=== PATIENT | female | born 1945 | race Caucasian/White ===

== ENCOUNTER 2016-08-20 07:08 | Inpatient (IN) | payer MEDICARE, OTHER ==
[~2016-08-20] VITALS: Ht 154.9 cm; Wt 58.0 kg
[2016-08-20] VITALS (9 sets, daily range): BP systolic 143–194; BP diastolic 73–91; PULSE 72–89; RESP 16–20; TEMP 98; O2SAT 96–99
[~2016-08-20 07:08] MED LIST: BONETAB PO; CETI1TAB21 PO; ESTR42.5V PV; MAGN250T5 PO; METR1GEL2 EX; MULT-65 PO; NEXI40CA PO; VITA100T54 PO; VITA20002 PO
[2016-08-20] MEDS ORDERED: SODIUM CHLORIDE 0.9% FLUSH 5 ML FLUSH IVF PRN ×3 (07:30→21:00)
[2016-08-20] MEDS ORDERED: ZYRTTAB2 PO (07:30)
[2016-08-20] MEDS ORDERED: Vitamin B1 PO (07:41)
[2016-08-20] MEDS ORDERED: Multivitamin PO (07:41)
[2016-08-20] MEDS ORDERED: MAGN250T5 PO (07:41)
[2016-08-20] MEDS ORDERED: OMEP20CA2 PO (07:41)
[2016-08-20] MEDS ORDERED: METR1GEL TOPICAL (07:41)
[2016-08-20] MEDS ORDERED: BONETAB PO (07:41)
[2016-08-20] MEDS ORDERED: CHOL1TAB42 PO (07:41)
[2016-08-20] MEDS ORDERED: ESTR42.5V VAGINAL (07:41)
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
--- NOTE | 2016-08-20 08:15 | RADRPT ---
EXAM DATE/TIME: 08/20/2016 07:50 [facility] COMPARISON: No previous studies available for comparison. INDICATIONS : Woke up with left arm numbness and tingling RADIATION DOSE: 39.44 CTDIvol (mGy) MEDICAL HISTORY : None SURGICAL HISTORY : None. ENCOUNTER: Initial ACUITY: 1 day PAIN SCALE: 0/10 LOCATION: cranial TECHNIQUE: Multiple contiguous axial images were obtained of the head. Using automated exposure control and adj ustment of the mA and/or kV according to patient size, radiation dose was kept as low as reasonably a chievable to obtain optimal diagnostic quality images. FINDINGS: CEREBRUM: The ventricles are normal for age. No evidence of midline shift, mass lesion, hemorrhage or acute in farction. No extra-axial fluid collections are seen. Tiny old lacunar infarcts are noted within the right basal ganglia. POSTERIOR FOSSA: The cerebellum and brainstem are intact. The 4th ventricle is midline. The cerebellopontine angle i s unremarkable. EXTRACRANIAL: The visualized portion of the orbits is intact. Mild mucosal thickening is noted involving the bilate ral ethmoid and sphenoid sinuses. SKULL: The calvaria is intact. No evidence of skull fracture. CONCLUSION: 1. No acute hemorrhage, acute infarct, mass effect or extra axial fluid collections. 2. Tiny old lacunar infarcts within the right basal ganglia. 3. Mild mucosal thickening involving the bilateral ethmoid and sphenoid sinuses. Kevin Castro MD on August 20, 2016 at 8:12 Board Certified Radiologist. This report was verified electronically.
[2016-08-20 08:56] LABS: AUTOMATED NEUTROPHIL # 4.2 TH/MM3 (1.8-7.7); BASOPHIL # 0.1 TH/MM3 (0-0.2); BASOPHIL % 1.1 % (0.0-2.0); EOSINOPHIL # 0.4 TH/MM3 (0-0.4); HEMATOCRIT 42.3 % (35.0-46.0); HEMO FLAGS DIFF FINAL; LYMPH % 27.8 % (9.0-44.0); LYMPHOCYTE # 2.1 TH/MM3 (1.0-4.8); MEAN CELL VOLUME 90.1 FL (80.0-100.0); MEAN CORPUSCULAR HEMOGLOBIN 30.4 PG (27.0-34.0); MEAN CORPUSCULAR HGB CONC 33.8 % (32.0-36.0); MONO % 8.4 % (0.0-8.0); NEUT % 56.7 % (16.0-70.0); PLATELET COUNT 246 TH/MM3 (150-450); RED CELL DISTRIBUTION WIDTH 12.3 % (11.6-17.2); WHITE BLOOD COUNT 7.4 TH/MM3 (4.0-11.0)
[2016-08-20 09:17] LABS: ANION GAP 8 MEQ/L (5-15); AST (GOT) 27 U/L (15-37); BICARBONATE 27.5 MEQ/L (21.0-32.0); BLOOD UREA NITROGEN 18 MG/DL (7-18); CHLORIDE 106 MEQ/L (98-107); GLOMERULAR FILTRATION RATE 63 ML/MIN (>89); POTASSIUM 3.8 MEQ/L (3.5-5.1); SODIUM (NA) 141 MEQ/L (136-145)
[2016-08-20 09:26] LABS: ALKALINE PHOSPHATASE 75 U/L (45-117); ALT (GPT) 36 U/L (10-53); CREATINE KINASE 766 U/L (26-192); TOTAL BILIRUBIN ADULT 0.3 MG/DL (0.2-1.0)
[2016-08-20 09:39] LABS: CKMB 15.4 NG/ML (0.5-3.6)
[2016-08-20 09:48] LABS: BACTERIA, URINE MOD /hpf; BLOOD, URINE NEG (NEG); COMMENT (UR) CULTURE INDICATED; CULTURE IF INDICATED CULTURE INDICATED; GLUCOSE,URINE NEG (NEG); KETONE, URINE NEG (NEG); NITRITE,URINE NEG (NEG); SQUAMOUS EPITHELIAL CELL URINE 4 /hpf (0-5); URINE COLOR YELLOW (YELLW/STRAW)
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
--- NOTE | 2016-08-20 13:41 | EKG ---
Date Performed: 08/20/2016 Time Performed: 08:32:56 PTAGE: 70 years EKG: Sinus rhythm NORMAL ECG NO PREVIOUS TRACING DOCTOR: Edgar Sanders Interpretating Date/Time 08/20/2016 13:39:51
[2016-08-20] MEDS ORDERED: ASPIRIN 81 MG CHEW TAB CHEW ONE ×2 (13:45→14:15)
[2016-08-20] MEDS ORDERED: ASPIRIN 81 MG CHEW TAB TUBE ONE (13:45)
[2016-08-20] MEDS ORDERED: SODIUM CHLOR 0.9% 1000 ML INJ 1,000 ML IV SCH ×3 (14:30→21:00)
[2016-08-20] MEDS ORDERED: GLUCAGON 1 MG/ML VIAL IM/SQ PRN ×2 (14:30→21:00)
[2016-08-20] MEDS ORDERED: DEXTROSE 50% IN WATER 50 ML VIAL(D50) IV PUSH PRN ×2 (14:30→21:00)
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
[2016-08-20] MEDS ORDERED: INSULIN ASPART SUPPLEMENTAL SCALE SQ SCH (16:00)
--- NOTE | 2016-08-20 17:48 | EC ---
Study Study Date:08/20/2016 STUDY CONCLUSIONS SUMMARY - Left ventricle: The cavity size was normal. Wall thickness was increased in a pattern of mild LVH. Systolic function was normal. The estimated ejection fraction was in the range of 55% to 60%. Wall motion was normal; there were no regional wall motion abnormalities. Doppler parameters are consistent with abnormal left ventricular relaxation (grade 1 diastolic dysfunction). - Aortic valve: Mild regurgitation. - Left atrium: The atrium was mildly dilated. If LV function is below 40, please consider prescribing an ACEI or ARB or document rationale for non-use. PROCEDURE DATA STUDY STATUS: Elective. Procedure: Transthoracic echocardiography. Image quality was good. Scanning was performed from the parasternal, apical, and subcostal acoustic windows. Study completion: The patient tolerated the procedure well. Transthoracic echocardiography. M-mode, complete 2D, complete spectral Doppler, and color Doppler. Patient status: Inpatient. CARDIAC ANATOMY LEFT VENTRICLE: The cavity size was normal. Wall thickness was increased in a pattern of mild LVH. Systolic function was normal. The estimated ejection fraction was in the range of 55% to 60%. Wall motion was normal; there were no regional wall motion abnormalities. Doppler parameters are consistent with abnormal left ventricular relaxation (grade 1 diastolic dysfunction). AORTIC VALVE: Trileaflet; normal thickness leaflets. Doppler: Transvalvular velocity was within the normal range. There was no stenosis. Mild regurgitation. AORTA: Aortic root: The aortic root was normal in size. MITRAL VALVE: Structurally normal valve. Doppler: Transvalvular velocity was within the normal range. There was no evidence for stenosis. Trace regurgitation. LEFT ATRIUM: The atrium was mildly dilated. RIGHT VENTRICLE: The cavity size was normal. Wall thickness was normal. PULMONIC VALVE: Doppler: Transvalvular velocity was within the normal range. There was no evidence for stenosis. No regurgitation. TRICUSPID VALVE: Structurally normal valve. Doppler: Transvalvular velocity was within the normal range. No regurgitation. PULMONARY ARTERY: The main pulmonary artery was normal-sized. Systolic pressure was within the normal range. RIGHT ATRIUM: The atrium was normal in size. PERICARDIUM: There was no pericardial effusion. SYSTEMIC VEINS: Inferior vena cava: The vessel was normal in size. BASIC MEASUREMENTS ADULT Normal Left ventricle LV internal dimension, ED, chordal level, *42 mm 43-52 PLAX LV internal dimension, ES, chordal level, 31.3 mm 23-38 PLAX Fractional shortening, chordal level, PLAX *25 % >29 LV posterior wall thickness, ED 6.33 mm IVS/LVPW ratio, ED *1.35 <1.3 Ventricular septum Septal thickness, ED 8.53 mm Aortic valve Leaflet separation 19 mm 15-26 Left atrium Anterior-posterior dimension 32 mm Right ventricle RV internal dimension, ED, PLAX *17.6 mm 19-38 BASIC MEASUREMENTS ADULT Normal Aortic valve Leaflet separation 19 mm 15-26 Aorta Root diameter, ED 32 mm 20-37 DOPPLER MEASUREMENTS ADULT Normal Main pulmonary artery Pressure, S 24 mm Hg =30 Mitral valve Peak E-wave velocity 60.2 cm/s Peak A-wave velocity 84.9 cm/s Peak E/A ratio 0.7 Tricuspid valve Regurgitant peak velocity 171 cm/s Peak RV-RA gradient, S 12 mm Hg Maximal regurgitant velocity 171 cm/s Systemic veins Estimated CVP 5 mm Hg Right ventricle RV pressure, S 24 mm Hg <30 LEGEND: Mean values are shown as u=mean value. Asterisk (*) faith values outside specified normal range. Prepared and signed by Martinez Mcdonald [id number]
[2016-08-20 18:22] LABS: HEMOGLOBIN A1a 0.8 %; HEMOGLOBIN A1b 1.7 %; HEMOGLOBIN Ao 85.9 %; HEMOGLOBIN LA1C 1.9 %; HEMOGLOBIN P3 3.6 %
[2016-08-20] MEDS: INSULIN ASPART SUPPLEMENTAL SCALE SQ SCH (21:00)
[2016-08-20] MEDS ORDERED: SODIUM CHLORIDE 0.9% FLUSH 5 ML FLUSH IVF SCH (21:00)
[2016-08-20] MEDS: SODIUM CHLORIDE 0.9% FLUSH 5 ML FLUSH IVF SCH (21:00)
[2016-08-20] MEDS: ATORVASTATIN 20 MG TAB PO SCH (21:35)
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
[2016-08-21] VITALS (10 sets, daily range): BP systolic 110–131; BP diastolic 62–77; PULSE 56–80; RESP 18–20; TEMP 97.4–98.2; O2SAT 93–97
[2016-08-21] MEDS: INSULIN ASPART SUPPLEMENTAL SCALE SQ SCH ×4 (07:00→21:00)
[2016-08-21 07:59] LABS: AUTOMATED NEUTROPHIL # 7.8 TH/MM3 (1.8-7.7); BASOPHIL # 0.1 TH/MM3 (0-0.2); BASOPHIL % 0.8 % (0.0-2.0); EOSINOPHIL # 0.2 TH/MM3 (0-0.4); EOSINOPHIL % 1.5 % (0.0-4.0); HEMATOCRIT 39.2 % (35.0-46.0); HEMO FLAGS DIFF FINAL; LYMPH % 18.5 % (9.0-44.0); MEAN CELL VOLUME 90.1 FL (80.0-100.0); MEAN CORPUSCULAR HEMOGLOBIN 30.8 PG (27.0-34.0); MEAN CORPUSCULAR HGB CONC 34.2 % (32.0-36.0); MONO % 7.7 % (0.0-8.0); NEUT % 71.5 % (16.0-70.0); PLATELET COUNT 236 TH/MM3 (150-450); RED BLOOD COUNT 4.35 MIL/MM3 (4.00-5.30); RED CELL DISTRIBUTION WIDTH 12.3 % (11.6-17.2); WHITE BLOOD COUNT 10.9 TH/MM3 (4.0-11.0)
[2016-08-21 08:36] LABS: BICARBONATE 25.8 MEQ/L (21.0-32.0); POTASSIUM 3.7 MEQ/L (3.5-5.1)
[2016-08-21 08:38] LABS: HDL CHOLESTEROL 51.5 MG/DL (40.0-60.0)
[2016-08-21] MEDS ORDERED: ASPIRIN 325 MG TAB PO SCH (09:00)
[2016-08-21] MEDS: ASPIRIN EC 325 MG TABEC PO SCH (09:00)
[2016-08-21] MEDS: SODIUM CHLORIDE 0.9% FLUSH 5 ML FLUSH IVF SCH ×2 (09:00→22:08)
[2016-08-21] MEDS ORDERED: [UNRECOGNIZED DRUG - REMARK] PO SCH (09:00)
[2016-08-21] MEDS: PANTOPRAZOLE SOD 20 MG DELAYED RELEASE TAB PO SCH (09:00)
--- NOTE | 2016-08-21 12:54 | HHI.PR ---
Subjective Remarks just minor tingling left lip. ambulating. Objective Vitals heart reg lung cta abd s/nt ext no edema Vital Signs Date Time Temp Pulse Resp B/P Pulse Ox O2 Delivery O2 Flow Rate FiO2 08/21/16 12:00 97.9 58 20 110/67 93 08/21/16 08:53 96 21 08/21/16 08:35 59 19 115/62 96 114/62 131/77 08/21/16 07:33 97.9 59 18 121/64 96 08/21/16 03:42 97.4 64 20 110/67 96 08/21/16 00:10 97.9 56 19 129/68 95 08/20/16 23:30 72 08/20/16 21:00 97 21 08/20/16 19:03 80 18 157/75 98 Room Air 08/20/16 14:22 75 20 157/82 96 Room Air Result Diagram: 08/21/16 0639 08/21/16 0639 Imaging Last Impressions Brain MRI 08/20/16 0920 Signed Impressions: Service Date/Time: August 12:21 - CONCLUSION: 1. Tiny faint focal signal abnormality within the right thalamus on the diffusion weighted images suggesting acute/subacute lacunar infarct. 2. No acute hemorrhage, midline shift or extra-axial fluid collection. 3. Mucosal thickening involving the bilateral sphenoid sinuses and posterior ethmoid air cells. Kevin Castro MD Head CT 08/20/16 0724 Signed Impressions: Service Date/Time: August 07:50 - CONCLUSION: 1. No acute hemorrhage, acute infarct, mass effect or extra axial fluid collections. 2. Tiny old lacunar infarcts within the right basal ganglia. 3. Mild mucosal thickening involving the bilateral ethmoid and sphenoid sinuses. Kevin Castro MD Abdomen X-Ray 08/20/16 0000 Signed Impressions: Service Date/Time: August 10:30 - CONCLUSION: No evidence of obstruction. No MRI incompatible foreign body is identified. Cholelithiasis incidentally noted. Prince Rojas MD A/P Problem List: (1) CVA (cerebral vascular accident) Status: Acute Plan: - Pt presented to the ED with complaints of left facial tingling and left arm and leg tingling that began this morning upon awakening. - In the ED her BP was noted to be elevated, 162/91 and elevated to 194/87. - Head CT which showed no acute hemorrhage, acute infarct, mass effect or extra axial fluid collections, tiny old lacunar infarcts within the right basal ganglia and mild mucosal thickening involving the bilateral ethmoid and sphenoid sinuses. - MRI Brain which indicated a tiny faint focal signal abnormality within the right thalamus on the diffusion weighted images suggesting acute/subacute lacunar infarct but no acute hemorrhage, midline shift or extra- axial fluid collection. - Pt is being admitted for CVA. - d/c hob flat. d/c ivf. cont asa/statin monitor tele/holter. ambulate if stable then d/c in AM. Brenden Pizano MD Aug 21, 2016 12:54
--- NOTE | 2016-08-21 19:23 | HHI.PR ---
Review/Management Diagnosis thalamic cva/tia Plan continue asa and statin ok from neuro standpoint to dc tomorrow. consider cardiology eval as outpatient to consider emt intermediate linq patient monitor to r./o afib Diagnosis/Plan: Subjective Subjective Comments No acute events reported some mild paresthesias left corner of mouth Active Medications Current Medications Medications (Trade) Dose Ordered Sig/Stacie Route Start Time Stop Time Status Last Admin (Lipitor) 20 mg HS PO 08/20/16 21:00 08/20/16 21:35 Patient Own Medication 1 ea DAILY PO 08/21/16 09:00 Hold (Protonix) 20 mg DAILY PO 08/21/16 09:00 (Ecotrin Ec) 325 mg DAILY PO 08/21/16 09:00 08/21/16 09:00 (NS Flush) 2 ml BID IVF 08/20/16 21:00 08/21/16 09:00 (NS Flush) 2 ml UNSCH PRN IVF 08/20/16 21:00 (D50w (Vial) Inj) 25 ml UNSCH PRN IV PUSH 08/20/16 21:00 (Glucagon Inj) 1 mg UNSCH PRN IM/SQ 08/20/16 21:00 Allergies Allergies Coded Allergies Adhesives (Verified Allergy, Intermediate, Rash, 08/20/16) Betadine (Unverified Allergy, Intermediate, SEVERE PEELING OF SKIN, 08/20/16) Mineral Oil (Unverified Allergy, Intermediate, RASH- ITCHING, 08/20/16) Seafood (Unverified Allergy, Intermediate, THROAT BURNING- HIVES, 08/20/16) Vitamin C (Unverified Allergy, Intermediate, THROAT SORE- VAGINAL IRRITATION, 08/20/16) Epinephrine (Verified Allergy, Unknown, 08/20/16) Erythromycin (Verified Allergy, Unknown, 08/20/16) Sulfa (Verified Allergy, Unknown, 08/20/16) Exam I&O / VS Vital Signs Date Time Temp Pulse Resp B/P Pulse Ox O2 Delivery O2 Flow Rate FiO2 08/21/16 15:40 97.7 76 20 120/67 97 08/21/16 12:00 97.9 58 20 110/67 93 08/21/16 08:53 96 21 08/21/16 08:35 59 19 115/62 96 114/62 131/77 08/21/16 07:33 97.9 59 18 121/64 96 08/21/16 07:22 59 08/21/16 03:42 97.4 64 20 110/67 96 08/21/16 00:10 97.9 56 19 129/68 95 08/20/16 23:30 72 08/20/16 21:00 97 21 Exam Comments alert, speech normal CN 2-12 normal motor normal strength bilaterally Objective Micro and Labs Laboratory Tests Test 08/21/16 06:39 White Blood Count 10.9 Red Blood Count 4.35 Hemoglobin 13.4 Hematocrit 39.2 Mean Corpuscular Volume 90.1 Mean Corpuscular Hemoglobin 30.8 Mean Corpuscular Hemoglobin 34.2 Concent Red Cell Distribution Width 12.3 Platelet Count 236 Mean Platelet Volume 10.2 Neutrophils (%) (Auto) 71.5 Lymphocytes (%) (Auto) 18.5 Monocytes (%) (Auto) 7.7 Eosinophils (%) (Auto) 1.5 Basophils (%) (Auto) 0.8 Neutrophils # (Auto) 7.8 Lymphocytes # (Auto) 2.0 Monocytes # (Auto) 0.8 Eosinophils # (Auto) 0.2 Basophils # (Auto) 0.1 CBC Comment DIFF FINAL Differential Comment Sodium Level 140 Potassium Level 3.7 Chloride Level 106 Carbon Dioxide Level 25.8 Anion Gap 8 Blood Urea Nitrogen 18 Creatinine 0.68 Estimat Glomerular Filtration 86 Rate Random Glucose 88 Calcium Level 8.1 Magnesium Level 2.0 Triglycerides Level 159 Cholesterol Level 215 LDL Cholesterol 132 HDL Cholesterol 51.5 Cholesterol/HDL Ratio 4.17 Date/Time Procedure Status Source Growth 08/20/16 08:46 Urine Culture - Preliminary Resulted Urine Clean Catch IMMATURE GROWTH - REINCUBATE Suresh Arguelles PhD MD Aug 21, 2016 19:23
[2016-08-21] MEDS: ATORVASTATIN 20 MG TAB PO SCH (22:08)
[2016-08-22 00:24] VITALS: BP 116/70; PULSE 70; RESP 18; TEMP 98; O2SAT 98
[2016-08-22 03:54] VITALS: BP 118/56; PULSE 68; RESP 19; TEMP 98.2; O2SAT 97
[2016-08-22] MEDS: INSULIN ASPART SUPPLEMENTAL SCALE SQ SCH ×2 (05:45→11:00)
[2016-08-22 08:00] VITALS: PULSE 78
[2016-08-22] MEDS: PANTOPRAZOLE SOD 20 MG DELAYED RELEASE TAB PO SCH (08:19)
[2016-08-22] MEDS: SODIUM CHLORIDE 0.9% FLUSH 5 ML FLUSH IVF SCH (08:20)
[2016-08-22] MEDS: ASPIRIN EC 325 MG TABEC PO SCH (08:20)
[2016-08-22 08:30] VITALS: BP 116/70; PULSE 61; RESP 18; O2SAT 95
--- NOTE | 2016-08-22 12:04 | HHI.PR ---
Subjective Remarks feels good . wants to go home. Objective Vitals heart rg lung cta abd s/nte ext no edema Vital Signs Date Time Temp Pulse Resp B/P Pulse Ox O2 Delivery O2 Flow Rate FiO2 08/22/16 08:30 61 18 116/70 95 08/22/16 03:54 98.2 68 19 118/56 97 08/22/16 00:24 98.0 70 18 116/70 98 08/21/16 20:11 98.2 64 18 121/68 94 08/21/16 20:00 80 08/21/16 15:40 97.7 76 20 120/67 97 Result Diagram: 08/21/16 0639 08/21/16 0639 Imaging Last Impressions Brain MRI 08/20/16 0920 Signed Impressions: Service Date/Time: August 12:21 - CONCLUSION: 1. Tiny faint focal signal abnormality within the right thalamus on the diffusion weighted images suggesting acute/subacute lacunar infarct. 2. No acute hemorrhage, midline shift or extra-axial fluid collection. 3. Mucosal thickening involving the bilateral sphenoid sinuses and posterior ethmoid air cells. Kevin Castro MD Head CT 08/20/16 0724 Signed Impressions: Service Date/Time: August 07:50 - CONCLUSION: 1. No acute hemorrhage, acute infarct, mass effect or extra axial fluid collections. 2. Tiny old lacunar infarcts within the right basal ganglia. 3. Mild mucosal thickening involving the bilateral ethmoid and sphenoid sinuses. Kevin Castro MD Abdomen X-Ray 08/20/16 0000 Signed Impressions: Service Date/Time: August 10:30 - CONCLUSION: No evidence of obstruction. No MRI incompatible foreign body is identified. Cholelithiasis incidentally noted. Prince Rojas MD A/P Problem List: (1) CVA (cerebral vascular accident) Status: Acute Plan: - Pt presented to the ED with complaints of left facial tingling and left arm and leg tingling that began this morning upon awakening. - In the ED her BP was noted to be elevated, 162/91 and elevated to 194/87. - Head CT which showed no acute hemorrhage, acute infarct, mass effect or extra axial fluid collections, tiny old lacunar infarcts within the right basal ganglia and mild mucosal thickening involving the bilateral ethmoid and sphenoid sinuses. - MRI Brain which indicated a tiny faint focal signal abnormality within the right thalamus on the diffusion weighted images suggesting acute/subacute lacunar infarct but no acute hemorrhage, midline shift or extra- axial fluid collection. - Pt is being admitted for CVA. - tele nsr f/u holter cont asa/statin. this could be increased as outpt as tolerated. d/c with neuro f/u. Brenden Pizano MD Aug 22, 2016 12:04
[2016-08-22] MEDS ORDERED: LIPI20TA PO (12:05)
[2016-08-22] MEDS ORDERED: Aspirin Ec PO (12:05)
--- NOTE | 2016-08-22 12:06 | HHI.DCPOC ---
Discharge Care Plan Diagnosis: (1) CVA (cerebral vascular accident) Goals to Promote Your Health * To prevent worsening of your condition and complications * To maintain your health at the optimal level Directions to Meet Your Goals Take your medications as prescribed Follow your dietary instruction Follow activity as directed Keep your appointments as scheduled Take your immunizations and boosters as scheduled If your symptoms worsen call your PCP, if no PCP go to Urgent Care Center or Emergency Room Smoking is Dangerous to Your Health. Avoid second hand smoke Call the 24-hour hour crisis hotline for domestic abuse at Brenden Pizano MD Aug 22, 2016 12:06
[2016-08-22] MEDS ORDERED: ATORVASTATIN 20 MG TAB PO ONE (12:15)
--- NOTE | 2016-08-23 14:48 | HM ---
Date Performed: 08/22/2016 Time Performed: 10:31:00 HOOKUP DATE: 08/22/16 10:31:00 AM Sat ANALYSIS START TIME: 08/22/2016 10:36:00 AM ANALYSIS END TIME: 08/23/2016 10:40:00 AM PATIENT AGE: 70 PATIENT HEIGHT: 61 PATIENT WEIGHT: 127 DRUG LIST PATIENT DIAGNOSIS: STROKE TEST NARRATIVE: The patient's average heart rate was 71 BPM. No episodes of tachycardia wer e noted. Heart rates less than 50 BPM were noted < 1% of the time. No pauses exceeding 2.0 secon ds were noted. 205 ventricular ectopics, which represented < 1% of the total beat count, were not ed. The highest ventricular ectopic frequency occurred from 07:00 AM to 08:00 AM Sun. During this t edenilson 42 VE(s) occurred. Ventricular ectopics were observed as 205 isolated beat(s) only. No couplets or runs were noted. 6 supraventricular ectopics, which represented < 1% of the total beat count, were noted. The highest supraventricular ectopic frequency occurred from 02:00 PM to 03:00 PM Sat. During this time 1 SVE(s) occurred. No episodes of ST depression (defined as -1.0 mm or more) we re noted in channel 1. No episodes of ST depression (defined as -1.0 mm or more) were noted in chann el 2. No episodes of ST depression (defined as -1.0 mm or more) were noted in channel 3. No alejandro ry events were reported by the patient. TEST INTERPRETATION: Holter monitor is for 24 hours and 4 minutes with a minimum HR of 49 and ma ximum HR of 107 with an average of 71. There 2 identified PVCs and 6 PACs, but no atrial fibrillation Conclusions: Occasional ectopy of above, but no sustained atrial fibrillation or other dysrhythmia. So symptoms were reported with this recording Signed by : Freddy Monsiavis
== END 2016-08-22 18:22 | disposition home or self-care (01) | DRG 66 ==
LOC: NEPE 07:08 → NEDA 13:52 → NEDH 19:06 → NEPHCDU 23:24
PROVIDERS: ADMIT Hospitalist; ATTEND Hospitalist
DX: I63.8 Other cerebral infarction (principal); E78.5 Hyperlipidemia, unspecified; K21.9 Gastro-esophageal reflux disease without esophagitis; M19.90 Unspecified osteoarthritis, unspecified site; Z88.1 Allergy status to other antibiotic agents; Z88.2 Allergy status to sulfonamides; Z91.013 Allergy to seafood; Z91.041 Radiographic dye allergy status
CPT/HCPCS: 70450; 70551; 80048; 80053; 80061; 81001; 82550; 82552; 82948; 83036; 83735; 84484; 85025; 87086; 93005; 93225; 93226; 93306; 93880; J1815; J7030

== ENCOUNTER 2016-08-24 18:59 | Observation (INO) | payer MEDICARE, OTHER ==
[~2016-08-24] VITALS: Ht 154.9 cm; Wt 57.7 kg
[~2016-08-24 18:59] MED LIST changes: +Aspirin Ec PO; +CHOL1TAB42 PO; +ESTR42.5V VAGINAL; +LIPI20TA PO; +METR1GEL TOPICAL; +Multivitamin PO; +OMEP20CA2 PO; +Vitamin B1 PO; +ZYRTTAB2 PO
[2016-08-24 19:04] VITALS: BP 177/81; PULSE 68; RESP 16; TEMP 97.8; O2SAT 97
[2016-08-24 19:24] VITALS: BP 199/87; PULSE 76; RESP 16; O2SAT 98
[2016-08-24] MEDS ORDERED: SODIUM CHLORIDE 0.9% FLUSH 5 ML FLUSH IVF PRN ×2 (19:30→22:00)
[2016-08-24 19:46] LABS: AUTOMATED NEUTROPHIL # 6.2 TH/MM3 (1.8-7.7); BASOPHIL # 0.1 TH/MM3 (0-0.2); BASOPHIL % 0.7 % (0.0-2.0); EOSINOPHIL # 0.3 TH/MM3 (0-0.4); EOSINOPHIL % 2.9 % (0.0-4.0); HEMATOCRIT 40.9 % (35.0-46.0); HEMO FLAGS DIFF FINAL; LYMPH % 24.5 % (9.0-44.0); LYMPHOCYTE # 2.4 TH/MM3 (1.0-4.8); MEAN CELL VOLUME 89.9 FL (80.0-100.0); MEAN CORPUSCULAR HEMOGLOBIN 30.2 PG (27.0-34.0); MEAN CORPUSCULAR HGB CONC 33.6 % (32.0-36.0); MONO % 8.4 % (0.0-8.0); NEUT % 63.5 % (16.0-70.0); PLATELET COUNT 242 TH/MM3 (150-450); RED BLOOD COUNT 4.55 MIL/MM3 (4.00-5.30); RED CELL DISTRIBUTION WIDTH 12.1 % (11.6-17.2); WHITE BLOOD COUNT 9.7 TH/MM3 (4.0-11.0)
[2016-08-24 19:47] VITALS: BP 153/70; PULSE 75; RESP 16; O2SAT 96
[2016-08-24 20:00] VITALS: O2SAT 95
[2016-08-24 20:04] LABS: APTT (PATIENT) 26.4 SEC (24.3-30.1); PROTHROMBIN TIME - PATIENT 10.5 SEC (9.8-11.6)
[2016-08-24 20:15] LABS: ALKALINE PHOSPHATASE 74 U/L (45-117); ALT (GPT) 37 U/L (10-53); ANION GAP 6 MEQ/L (5-15); AST (GOT) 26 U/L (15-37); BICARBONATE 30.8 MEQ/L (21.0-32.0); BLOOD UREA NITROGEN 20 MG/DL (7-18); CHLORIDE 104 MEQ/L (98-107); CREATINE KINASE 249 U/L (26-192); GLOMERULAR FILTRATION RATE 62 ML/MIN (>89); MAGNESIUM 2.1 MG/DL (1.5-2.5); POTASSIUM 3.8 MEQ/L (3.5-5.1); SODIUM (NA) 141 MEQ/L (136-145); TOTAL BILIRUBIN ADULT 0.3 MG/DL (0.2-1.0)
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
--- NOTE | 2016-08-24 20:22 | RADRPT ---
EXAM DATE/TIME: 08/24/2016 19:46 [facility] COMPARISON: No previous studies available for comparison. INDICATIONS : Short of breath. MEDICAL HISTORY : None. SURGICAL HISTORY : None. ENCOUNTER: Initial ACUITY: 1 day PAIN SCORE: 0/10 LOCATION: Bilateral chest FINDINGS: A single view of the chest demonstrates the lungs to be symmetrically aerated without evidence of mas s, infiltrate or effusion. The cardiomediastinal contours are unremarkable. Osseous structures are intact. CONCLUSION: No acute disease. Prabhakar Ware MD on August 24, 2016 at 20:20 Board Certified Radiologist. This report was verified electronically.
[2016-08-24 20:44] LABS: CKMB 5.4 NG/ML (0.5-3.6)
[2016-08-24] MEDS ORDERED: ACETAMINOPHEN 500 MG CPLT PO PRN (22:00)
[2016-08-24 22:02] VITALS: BP 129/74; PULSE 77; RESP 18; O2SAT 95
--- NOTE | 2016-08-24 22:43 | RADRPT ---
EXAM DATE/TIME: 08/24/2016 22:18 [facility] COMPARISON: CHEST SINGLE AP, August 24, 2016, 19:46. INDICATIONS : Dyspnea for one day with recent stroke. DOSE: 8.5 mCi Tc99m MAA IV 1.03 mCi Tc99m DTPA aerosol MEDICAL HISTORY : Gastroesophageal reflux disease. Stroke Heart murmur. SURGICAL HISTORY : Appendectomy. Exploratory abdominal surgery and nasal surgery. ENCOUNTER: Initial ACUITY: 1 day PAIN SCALE: 0/10 LOCATION: chest TECHNIQUE: Following five minutes of tidal breathing of DTPA aerosol, planar images of the lungs were performed in eight projections. The patient was then injected with MAA, and eight-view perfusion scan was perf ormed. FINDINGS: There is a homogeneous pattern of aerosol delivery to the periphery of both lungs. No focal ventilat ory defects are seen. The perfusion lung scan demonstrates a homogenous pattern of uptake in both lungs. No segmental or s ubsegmental defects are seen. CONCLUSION: Low probability for pulmonary embolus. Prabhakar Ware MD on August 24, 2016 at 22:41 Board Certified Radiologist. This report was verified electronically.
[2016-08-25] VITALS (7 sets, daily range): BP systolic 113–127; BP diastolic 63–79; PULSE 66–76; RESP 18–20; TEMP 97.2–98.4; O2SAT 94–96
[2016-08-25 02:02] LABS: CREATINE KINASE 192 U/L (26-192)
[2016-08-25 02:23] LABS: CKMB 3.4 NG/ML (0.5-3.6)
--- NOTE | 2016-08-25 07:59 | HHI.HP ---
HPI Primary Care Physician Brenden Bah MD Chief Complaint Shortness of breath and elevated blood pressure History of Present Illness This is a 70-year-old female that presents to the ED with recent history of a TIA/CVA last week. She states that she was placed on aspirin and Lipitor. She presents to the ED last night complaining of shortness of breath the last about 45 minutes. She checked her blood pressure and thought that his high so she called her neighbor who is a retired nurse and had a low pressure rechecked and was high again so she presented to the ED. Denies chest pain. Denies diaphoresis. Denies nausea. She states that her symptoms last week and presented her to the ED for dilation of her CVA/TIA included tingling in her face and left arm and leg. She did not have weakness in her extremities and was able to speak. She states that she otherwise has been healthy. She excised very regularly. She has a two-story house and walks in on anastrozole at time and never has any issues with shortness breath or chest pain. He states that she is little concern of cardiac issues as she has family history of CAD. Review of Systems General: Patient denies fevers, chills recent, and recent travel HEENT: Patient denies headache, sore throat, difficulty swallowing. Cardiovascular: Denies chest pain. Denies sensation of heart beating rapidly or irregularly. No syncope. Respiratory: Complains of shortness of breath. Denies inspirational chest discomfort. Denies coughing wheezing or hemoptysis. GI: Patient denies nausea, vomiting, diarrhea, abdominal pain, bloody stools. Musculoskeletal: Patient denies joint pain or edema. Denies calf pain or edema. Neurovascular: Patient denies numbness, tingling, weakness in extremities. Denies headache. Endocrine: Denies polyuria and polydipsia. Hematologic: Denies easy bruising. Skin: Denies rash or itching. Past Family Social History Allergies: Coded Allergies: Adhesives (Verified Allergy, Intermediate, Rash, 08/24/16) more the glue Betadine (Unverified Allergy, Intermediate, SEVERE PEELING OF SKIN, ) Mineral Oil (Unverified Allergy, Intermediate, RASH- ITCHING, 08/24/16) Seafood (Unverified Allergy, Intermediate, THROAT BURNING- HIVES, 08/24/16) Vitamin C (Unverified Allergy, Intermediate, THROAT SORE- VAGINAL IRRITATION, 08/24/16) Epinephrine (Verified Allergy, Unknown, 08/24/16) INTERMEDIATE REACTION - EXTREME DIARRHEA; "PASSED OUT" Erythromycin (Verified Allergy, Unknown, 08/24/16) INTERMEDIATE REACTION- HIVES Sulfa (Verified Allergy, Unknown, 08/24/16) INTERMEDIATE REACTION ; BODY TEMPERATURE LOWERS Past Medical History Recent TIA versus CVA. Hyperlipidemia. GERD. Postmenopausal. Past Surgical History Noncontributory. Reported Medications Reported Meds & Active Scripts Active Lipitor (Atorvastatin Calcium) 20 Mg Tab 20 Mg PO HS [Aspirin Ec] 325 MG Tabec 325 Mg PO DAILY Reported Metrogel Topical (Metronidazole Topical) 1 % Gel 1 Applic TOPICAL DAILY HS [Multivitamin] 1 Tab PO DAILY [Vitamin B1 ] 100 Mg PO DAILY Omeprazole 20 Mg Cap 20 Mg PO DAILY Magnesium Oxide 250 Mg Tab 250 Mg PO DAILY Vitamin D-3 (Cholecalciferol) 2,000 Unit Tab 3,000 Units PO BID Bone Meal (Bone Meal W/ Vitamin D) 1 Tab 2 PO BID Estrace Vaginal (Estradiol) 0.01% Cream 0.01 Appl VAGINAL PRN Active Ordered Medications Current Medications Medications (Trade) Dose Ordered Sig/Stacie Route Start Time Stop Time Status Last Admin (NS Flush) 2 ml UNSCH PRN IVF 08/24/16 19:30 (NS Flush) 2 ml UNSCH PRN IVF 08/24/16 22:00 (NS Flush) 2 ml BID IVF 08/25/16 09:00 (Tylenol) 500 mg Q4H PRN PO 08/24/16 22:00 (Aspirin) 325 mg DAILY PO 08/25/16 09:00 Family History Family history of CAD. Social History Patient does not smoke or use illicit drugs. Denies alcohol abuse. Physical Exam Vital Signs Vital Signs Date Time Temp Pulse Resp B/P Pulse Ox O2 Delivery O2 Flow Rate FiO2 08/25/16 06:08 98.4 75 18 118/63 96 08/25/16 02:51 66 08/25/16 01:06 72 08/25/16 01:05 72 08/25/16 00:41 97.2 72 18 113/67 94 08/24/16 22:02 77 18 129/74 95 Room Air 08/24/16 20:00 95 08/24/16 19:47 75 16 153/70 96 Room Air 08/24/16 19:35 97 Room Air 08/24/16 19:24 76 16 199/87 98 Room Air 08/24/16 19:04 97.8 68 16 177/81 97 Room Air Physical Exam GENERAL: This is a well-nourished, well-developed patient, in no apparent distress. Patient speaks in clear complete sentences. Patient is pleasant. HEENT: Head is atraumatic and normocephalic. Neck is supple without lymphadenopathy and trachea is midline. No JVD or carotid bruits. CARDIOVASCULAR: Regular rate and rhythm without murmurs, gallops, or rubs. RESPIRATORY: Clear to auscultation. Breath sounds equal bilaterally. No wheezes , rales, or rhonchi. Chest wall is nontender. No use of accessory muscles. GASTROINTESTINAL: Abdomen is nontender, nondistended. Abdomen soft. No obvious pulsatile mass or bruit. No CVA tenderness. Strong femoral pulses bilaterally. Normal bowel sounds in all quadrants. MUSCULOSKELETAL: Patient is moving upper and lower extremities freely. No calf tenderness or edema, no Homans sign. Strong pulses in upper and lower extremities. NEUROLOGICAL: Patient is alert and oriented. Cranial nerves 2-12 are grossly intact. No focal deficits and speech is clear. SKIN: No rash and turgor is normal. Laboratory Laboratory Tests Test 08/24/16 08/24/16 08/25/16 19:30 22:50 01:15 White Blood Count 9.7 Red Blood Count 4.55 Hemoglobin 13.7 Hematocrit 40.9 Mean Corpuscular Volume 89.9 Mean Corpuscular Hemoglobin 30.2 Mean Corpuscular Hemoglobin 33.6 Concent Red Cell Distribution Width 12.1 Platelet Count 242 Mean Platelet Volume 9.8 Neutrophils (%) (Auto) 63.5 Lymphocytes (%) (Auto) 24.5 Monocytes (%) (Auto) 8.4 Eosinophils (%) (Auto) 2.9 Basophils (%) (Auto) 0.7 Neutrophils # (Auto) 6.2 Lymphocytes # (Auto) 2.4 Monocytes # (Auto) 0.8 Eosinophils # (Auto) 0.3 Basophils # (Auto) 0.1 CBC Comment DIFF FINAL Differential Comment Prothrombin Time 10.5 Prothromb Time International 1.0 Ratio Activated Partial 26.4 Thromboplast Time D-Dimer Quantitative (PE/DVT) 0.70 Sodium Level 141 Potassium Level 3.8 Chloride Level 104 Carbon Dioxide Level 30.8 Anion Gap 6 Blood Urea Nitrogen 20 Creatinine 0.90 Estimat Glomerular Filtration 62 Rate Random Glucose 103 Calcium Level 9.2 Magnesium Level 2.1 Total Bilirubin 0.3 Aspartate Amino Transf 26 (AST/SGOT) Alanine Aminotransferase 37 (ALT/SGPT) Alkaline Phosphatase 74 Total Creatine Kinase 249 192 Creatine Kinase MB 5.4 3.4 Creatine Kinase MB % 2.2 Troponin I LESS THAN 0.02 0.02 LESS THAN 0.02 B-Type Natriuretic Peptide 2 Total Protein 7.5 Albumin 3.9 Result Diagram: 08/24/16192908/24/161929 Imaging Last Impressions Lung Scan-[facility] Nuclear Medicine 08/24/162048 Signed Impressions: Service Date/Time: Wednesday, August 24, 2016 22:18 - CONCLUSION: Low probability for pulmonary embolus. Prabhakar Ware MD Chest X-Ray 08/24/161927 Signed Impressions: Service Date/Time: Wednesday, August 24, 2016 19:46 - CONCLUSION: No acute disease. Prabhakar Ware MD Course EKGs have sinus rhythm without significant ST segment depressions or elevations. Assessment and Plan Assessment and Plan * Shortness of breath: Patient's symptoms have resolved. She was concerned of cardiac issues. Patient has been seen by Dr. Markham cardiology adjustments on her and will undergo a Juve protocol ETT. She'll be discharged home if her stress test were to be nonischemic with instructions to follow-up with her primary care physician as well as her neurologist. * Hyperlipidemia: Continue current medications. * Recent CVA/TIA: Continue current medications and follow-up with Dr. Arguelles. Oliver Brasher Aug 25, 2016 07:59
[2016-08-25] MEDS ORDERED: ASPIRIN 325 MG TAB PO SCH (09:00)
[2016-08-25] MEDS ORDERED: SODIUM CHLORIDE 0.9% FLUSH 5 ML FLUSH IVF SCH (09:00)
--- NOTE | 2016-08-25 09:10 | HHI.DCPOC ---
Discharge Care Plan Diagnosis: (1) Shortness of breath (2) Hyperlipidemia (3) History of CVA (cerebrovascular accident) Goals to Promote Your Health * To prevent worsening of your condition and complications * To maintain your health at the optimal level Directions to Meet Your Goals Take your medications as prescribed Follow your dietary instruction Follow activity as directed Keep your appointments as scheduled Take your immunizations and boosters as scheduled If your symptoms worsen call your PCP, if no PCP go to Urgent Care Center or Emergency Room Smoking is Dangerous to Your Health. Avoid second hand smoke Call the 24-hour hour crisis hotline for domestic abuse at Oliver Brasher Aug 25, 2016 09:10
--- NOTE | 2016-08-25 10:11 | EKG ---
Date Performed: 08/24/2016 Time Performed: 22:48:37 PTAGE: 70 years EKG: Sinus rhythm NORMAL ECG Since PREVIOUS TRACING , no significant change noted PREVIOUS TRACIN08/24/2016 19.46 DOCTOR: Roxane Markham Interpretating Date/Time 08/25/2016 10:09:42
--- NOTE | 2016-08-25 10:11 | TR ---
Date Performed: 08/25/2016 Time Performed: 08:15:11 DOCTOR: Roxane Markham DRUG LIST: CLINICAL HISTORY: SUDDEN ONSET SOB REASON FOR TEST: REASON FOR ENDING: OBSERVATION: CONCLUSION: DARNELL PROTOCOL. NO CP. TEST STOPPED AFTER EXCEEDING GOAL HR SSECONDARY TO LEG FATIGU E AND MILD SOB.Maximum YV=718 % Target HR Achieved=91.0% Maximum GL=704/70 Total Exercise Time=8:55 COMMENTS:
--- NOTE | 2016-08-25 10:11 | EKG ---
Date Performed: 08/25/2016 Time Performed: 01:23:19 PTAGE: 70 years EKG: Sinus rhythm NORMAL ECG Since PREVIOUS TRACING , no significant change noted PREVIOUS TRACIN08/24/2016 22.48 DOCTOR: Roxane Markham Interpretating Date/Time 08/25/2016 10:09:54
--- NOTE | 2016-08-25 10:12 | EKG ---
Date Performed: 08/24/2016 Time Performed: 19:46:11 PTAGE: 70 years EKG: Sinus rhythm NORMAL ECG Since PREVIOUS TRACING , no significant change noted PREVIOUS TRACIN08/20/2016 08.32 DOCTOR: Roxane Markham Interpretating Date/Time 08/25/2016 10:11:12
== END 2016-08-25 11:44 | disposition home or self-care (01) ==
LOC: NEPC 18:59 → INTOOBSV 21:53 → NEDA 21:53 → NEPHCDU 08-25 00:25
PROVIDERS: ADMIT Internal Medicine Cardiovascular Disease; ATTEND Internal Medicine Cardiovascular Disease
DX: R06.02 Shortness of breath (principal); E78.5 Hyperlipidemia, unspecified; K21.9 Gastro-esophageal reflux disease without esophagitis; Z86.73 Personal history of transient ischemic attack (TIA), and cerebral infarction without residual deficits; Z82.49 Family history of ischemic heart disease and other diseases of the circulatory system
CPT/HCPCS: 71010; 78582; 80053; 82550; 82552; 83735; 83880; 84484; 85025; 85379; 85610; 85730; 93005; 93017; 99285; A9540; A9567; G0378

== ENCOUNTER 2017-02-24 07:29 | Observation (INO) | payer MEDICARE, OTHER ==
[~2017-02-24] VITALS: Ht 154.9 cm; Wt 59.6 kg
[2017-02-24] VITALS (8 sets, daily range): BP systolic 134–158; BP diastolic 73–80; PULSE 58–68; RESP 14–20; TEMP 97.7–98.6; O2SAT 96–99
[~2017-02-24 07:29] MED LIST changes: -CETI1TAB21 PO; -ESTR42.5V PV; -METR1GEL2 EX; -MULT-65 PO; -NEXI40CA PO; -VITA100T54 PO; -VITA20002 PO; -ZYRTTAB2 PO
[2017-02-24] MEDS ORDERED: SODIUM CHLORIDE 0.9% FLUSH 10 ML FLUSH IVF PRN (07:45)
[2017-02-24] MEDS ORDERED: LIPI40TA PO (07:52)
[2017-02-24 08:08] LABS: AUTOMATED NEUTROPHIL # 5.1 TH/MM3 (1.8-7.7); BASOPHIL # 0.1 TH/MM3 (0-0.2); BASOPHIL % 0.9 % (0.0-2.0); EOSINOPHIL # 0.3 TH/MM3 (0-0.4); EOSINOPHIL % 3.2 % (0.0-4.0); HEMATOCRIT 41.5 % (35.0-46.0); HEMO FLAGS DIFF FINAL; LYMPH % 25.5 % (9.0-44.0); LYMPHOCYTE # 2.2 TH/MM3 (1.0-4.8); MEAN CELL VOLUME 91.3 FL (80.0-100.0); MEAN CORPUSCULAR HEMOGLOBIN 30.6 PG (27.0-34.0); MEAN CORPUSCULAR HGB CONC 33.5 % (32.0-36.0); MONO % 9.5 % (0.0-8.0); NEUT % 60.9 % (16.0-70.0); PLATELET COUNT 217 TH/MM3 (150-450); RED BLOOD COUNT 4.54 MIL/MM3 (4.00-5.30); RED CELL DISTRIBUTION WIDTH 12.3 % (11.6-17.2); WHITE BLOOD COUNT 8.4 TH/MM3 (4.0-11.0)
--- NOTE | 2017-02-24 08:14 | RADRPT ---
EXAM DATE/TIME: 02/24/2017 07:52 [facility] COMPARISON: CHEST SINGLE AP, August 24, 2016, 19:46. INDICATIONS : Numbness and chest pain on left side. MEDICAL HISTORY : Gastroesophageal reflux disease. Stroke Heart murmur. SURGICAL HISTORY : Appendectomy. Exploratory abdominal surgery and nasal surgery. ENCOUNTER: Initial ACUITY: 1 day PAIN SCORE: 2/10 LOCATION: Left chest FINDINGS: A single view of the chest demonstrates the lungs to be symmetrically aerated without evidence of mas s, infiltrate or effusion. The cardiomediastinal contours are unremarkable. Osseous structures are intact. CONCLUSION: Normal examination. Jose Desai Jr., MD on February 24, 2017 at 8:10 Board Certified Radiologist. This report was verified electronically.
[2017-02-24 08:15] LABS: BACTERIA, URINE RARE /hpf; BLOOD, URINE NEG (NEG); GLUCOSE,URINE NEG (NEG); KETONE, URINE NEG (NEG); NITRITE,URINE NEG (NEG); SQUAMOUS EPITHELIAL CELL URINE 1 /hpf (0-5); URINE COLOR LIGHT-YELLOW (YELLW/STRAW)
[2017-02-24 08:17] LABS: APTT (PATIENT) 26.1 SEC (24.3-30.1); INTERNATIONAL NORMALIZED RATIO 0.9 RATIO; PROTHROMBIN TIME - PATIENT 10.3 SEC (9.8-11.6)
[2017-02-24 08:17] LABS: COMMENT (UR) CULT NOT INDICATED; CULTURE IF INDICATED CULT NOT INDICATED
[2017-02-24 08:28] LABS: ALKALINE PHOSPHATASE 106 U/L (45-117); TOTAL BILIRUBIN ADULT 0.4 MG/DL (0.2-1.0)
[2017-02-24 08:33] LABS: ALT (GPT) 87 U/L (10-53); ANION GAP 7 MEQ/L (5-15); AST (GOT) 48 U/L (15-37); BICARBONATE 28.1 MEQ/L (21.0-32.0); BLOOD UREA NITROGEN 16 MG/DL (7-18); CHLORIDE 108 MEQ/L (98-107); GLOMERULAR FILTRATION RATE 69 ML/MIN (>89); POTASSIUM 3.9 MEQ/L (3.5-5.1); SODIUM (NA) 143 MEQ/L (136-145)
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
--- NOTE | 2017-02-24 09:22 | RADRPT ---
EXAM DATE/TIME: 02/24/2017 08:19 [facility] COMPARISON: CT BRAIN W/O CONTRAST, August 20, 2016, 7:50. INDICATIONS : Left side weakness and numbness this morning RADIATION DOSE: 31.39 CTDIvol (mGy) MEDICAL HISTORY : TIA's SURGICAL HISTORY : Appendectomy. ENCOUNTER: Initial ACUITY: 1 day PAIN SCALE: 0/10 LOCATION: cranial TECHNIQUE: Multiple contiguous axial images were obtained of the head. Using automated exposure control and adj ustment of the mA and/or kV according to patient size, radiation dose was kept as low as reasonably a chievable to obtain optimal diagnostic quality images. DICOM format image data is available electro nically for review and comparison. FINDINGS: CEREBRUM: The ventricles are normal for age. No evidence of midline shift, mass lesion, hemorrhage or acute in farction. No extra-axial fluid collections are seen. POSTERIOR FOSSA: The cerebellum and brainstem are intact. The 4th ventricle is midline. The cerebellopontine angle i s unremarkable. EXTRACRANIAL: The visualized portion of the orbits is intact. SKULL: The calvaria is intact. No evidence of skull fracture. CONCLUSION: Normal examination. Jose Desai Jr., MD on February 24, 2017 at 9:19 Board Certified Radiologist. This report was verified electronically.
[2017-02-24] MEDS ORDERED: ENALAPRILAT 1.25 MG/ML VIAL IV PRN (09:45)
[2017-02-24] MEDS ORDERED: LABETALOL HCL 100 MG/20 ML VIAL IV PRN (09:45)
[2017-02-24] MEDS: ASPIRIN 325 MG TAB PO SCH (09:45)
[2017-02-24] MEDS: SODIUM CHLOR 0.9% 1000 ML INJ 1,000 ML IV SCH ×2 (10:16→20:27)
--- NOTE | 2017-02-24 11:01 | RADRPT ---
EXAM DATE/TIME: 02/24/2017 10:11 [facility] COMPARISON: US CAROTID ARTERIES, August 20, 2016, 14:58. INDICATIONS : Transient ischemic attack. MEDICAL HISTORY : . Arthritis. Gastroesophageal reflux disease. Cerebrovascular accident. Anticoagulant therap y, Aspirin. SURGICAL HISTORY : Tonsillectomy. Appendectomy. Nasal surgery. Exploratory laparotomy. Left hand cyst removal. ENCOUNTER: Subsequent ACUITY: 1 day PAIN SCORE: 0/10 LOCATION: Bilateral neck PEAK SYSTOLIC VELOCITIES (cm/sec): ICA/CCA RATIO: Right: 0.9 Left: 0.7 ICA: Right: 76 Left: 84 CCA: Right: 86 Left: 122 ECA: Right: 76 Left: 62 VERTEBRAL: Right: 48 antegrade Left: 36 antegrade Elevated flow velocities and ICA/CCA ratios have been found to correlate with increased degrees of vessel stenosis, calculated as percentage of diameter relative to a normal segment of distal ICA/CCA FINDINGS: RIGHT CAROTID: No significant stenosis is visualized. Calcific plaque is present in the bowl with mild shadowing. T he waveforms are within normal limits. LEFT CAROTID: No significant stenosis is visualized. The waveforms are within normal limits. VERTEBRAL ARTERIES: Antegrade flow is seen in both vertebral arteries. MISCELLANEOUS: There is a solid hypoechoic structure in right mid lobe of the thyroid measuring 2.1 x 1.1 x 2.2 cm. There is a complex cystic structure in the isthmus measuring 10 x 8 x 10 mm. CONCLUSION: 1. Calcific plaque in the carotid bulb with no significant stenosis. 2. Multiple thyroid lesions. Prince Rojas MD on February 24, 2017 at 10:53 Board Certified Radiologist. This report was verified electronically.
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
--- NOTE | 2017-02-24 14:44 | EKG ---
Date Performed: 02/24/2017 Time Performed: 08:37:38 PTAGE: 71 years EKG: Sinus rhythm WITH SINUS ARRHYTHMIA NORMAL ECG PREVIOUS TRACING : 08/25/2016 01.23 Compared to prior tracing no significant change DOCTOR: Waldo Lozano Interpretating Date/Time 02/24/2017 14:43:28
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
--- NOTE | 2017-02-24 18:12 | ECHRPT ---
Indication: CVA/TIA CONCLUSIONS Normal left ventricular size. Wall thickness is measured at the upper limits of normal. The left ventricular systolic function is normal with an estimated ejection fraction in the range of 55-60%. Trace mitral valve regurgitation. BP: 158 / 80 HR: 68 Rhythm: Sinus MEASUREMENTS (Male / Female) Normal Values Technical Quality:Good 2D ECHO LV Diastolic Diameter PLAX 3.8 cm 4.2 - 5.9 / 3.9 - 5.3 cm LV Systolic Diameter PLAX 2.8 cm IVS Diastolic Thickness 1.5 cm 0.6 - 1.0 / 0.6 - 0.9 cm LVPW Diastolic Thickness 0.7 cm 0.6 - 1.0 / 0.6 - 0.9 cm LV Relative Wall Thickness 0.6 LA Systolic Diameter LX 3.3 cm 3.0 - 4.0 / 2.7 - 3.8 cm M-MODE Aortic Root Diameter MM 2.7 cm AV Cusp Separation MM 1.8 cm DOPPLER AV Peak Velocity 160.0 cm/s AV Peak Gradient 10.2 mmHg LVOT Peak Velocity 77.5 cm/s LVOT Peak Gradient 2.4 mmHg Mitral E Point Velocity 56.3 cm/s Mitral A Point Velocity 90.3 cm/s Mitral E to A Ratio 0.6 TR Peak Velocity 190.0 cm/s TR Peak Gradient 14.4 mmHg FINDINGS LEFT VENTRICLE Normal left ventricular size. Wall thickness is measured at the upper limits of normal. The left ventricular systolic function is normal with an estimated ejection fraction in the range of 55-60%. RIGHT VENTRICLE Normal right ventricular size and systolic function. LEFT ATRIUM The left atrial size is normal. RIGHT ATRIUM The right atrial size is normal. ATRIAL SEPTUM Normal atrial septal thickness without atrial level shunting by limited color doppler interrogation. AORTA The aortic root and proximal ascending aorta are normal in size on limited imaging. MITRAL VALVE Trace mitral valve regurgitation. AORTIC VALVE Trileaflet aortic valve. No aortic valve stenosis or regurgitation. TRICUSPID VALVE Structurally normal tricuspid valve. No tricuspid valve stenosis or regurgitation. PULMONARY VALVE The pulmonary valve is not well visualized. VESSELS The inferior vena cava is normal in size. PERICARDIUM No pericardial effusion. Clement Wiley MD (Electronically Signed) Final Date:24 February 2017 18:11
[2017-02-24 18:14] LABS: HEMOGLOBIN A1a 0.9 %; HEMOGLOBIN A1b 1.7 %; HEMOGLOBIN Ao 85.4 %; HEMOGLOBIN LA1C 1.8 %; HEMOGLOBIN P3 3.8 %
[2017-02-24] MEDS ORDERED: GLUCAGON 1 MG/ML VIAL OTHER PRN (20:30)
[2017-02-24] MEDS ORDERED: DEXTROSE 50% IN WATER 50 ML VIAL(D50) IV PUSH PRN (20:30)
[2017-02-24] MEDS ORDERED: SODIUM CHLORIDE 0.9% FLUSH 5 ML FLUSH IV FLUSH PRN (20:30)
[2017-02-24] MEDS ORDERED: PRAVASTATIN SOD 40 MG TAB PO SCH (21:00)
[2017-02-24 21:01] LABS: FREE T4 0.9 NG/DL (0.76-1.46)
[2017-02-24] MEDS: CLOPIDOGREL 75 MG TAB PO SCH (22:20)
[2017-02-24] MEDS: SODIUM CHLORIDE 0.9% FLUSH 5 ML FLUSH IV FLUSH SCH (22:20)
[2017-02-24] MEDS: INSULIN ASPART SUPPLEMENTAL SCALE SQ SCH (22:23)
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
[2017-02-25] VITALS: BP 121/79; PULSE 63; RESP 18; TEMP 97.8; O2SAT 96
[2017-02-25 05:00] VITALS: BP 108/59; PULSE 62; RESP 18; TEMP 98; O2SAT 97
[2017-02-25] MEDS: INSULIN ASPART SUPPLEMENTAL SCALE SQ SCH ×2 (06:19→11:00)
[2017-02-25 08:00] VITALS: BP 119/68; PULSE 64; RESP 19; TEMP 98; O2SAT 94
[2017-02-25] MEDS: CLOPIDOGREL 75 MG TAB PO SCH (08:48)
[2017-02-25] MEDS: ASPIRIN 325 MG TAB PO SCH (08:48)
[2017-02-25] MEDS: SODIUM CHLORIDE 0.9% FLUSH 5 ML FLUSH IV FLUSH SCH (09:00)
[2017-02-25] MEDS ORDERED: PANTOPRAZOLE SOD 20 MG DELAYED RELEASE TAB PO SCH (09:00)
[2017-02-25 09:46] LABS: HDL CHOLESTEROL 45.6 MG/DL (40.0-60.0); INDIRECT BILIRUBIN 0.5 MG/DL (0.0-0.8); TOTAL BILIRUBIN ADULT 0.7 MG/DL (0.2-1.0)
[2017-02-25 12:07] VITALS: BP 117/53; PULSE 70; RESP 19; TEMP 98.4; O2SAT 97
[2017-02-25 14:04] VITALS: O2SAT 97
[2017-02-25] MEDS ORDERED: PLAV75TA29 PO (14:35)
--- NOTE | 2017-02-25 14:36 | HHI.DCPOC ---
Discharge Care Plan Diagnosis: (1) Paresthesia of left arm and leg (2) History of CVA (cerebrovascular accident) (3) Hyperlipidemia Goals to Promote Your Health * To prevent worsening of your condition and complications * To maintain your health at the optimal level Directions to Meet Your Goals Take your medications as prescribed Follow your dietary instruction Follow activity as directed Keep your appointments as scheduled Take your immunizations and boosters as scheduled If your symptoms worsen call your PCP, if no PCP go to Urgent Care Center or Emergency Room Smoking is Dangerous to Your Health. Avoid second hand smoke Call the 24-hour hour crisis hotline for domestic abuse at Jessi Fraire Feb 25, 2017 14:36 Jeison Santillan DO Mar 01, 2017 00:55
--- NOTE | 2017-02-25 14:53 | HHI.PR ---
Subjective Remarks Pt feeling much better today Denies any more of the numbness or tingling Kimberly any dizziness or weakness Objective Vitals Vital Signs Date Time Temp Pulse Resp B/P Pulse Ox O2 Delivery O2 Flow Rate FiO2 02/25/17 14:04 97 21 02/25/17 12:07 98.4 70 19 117/53 97 02/25/17 08:00 98.0 64 19 119/68 94 02/25/17 05:00 98.0 62 18 108/59 97 02/25/17 00:00 97.8 63 18 121/79 96 02/24/17 20:32 97.7 62 20 134/76 96 02/24/17 15:52 98.3 58 18 145/73 99 02/24/17 02/24/17 02/25/17 15:00 23:00 07:00 Intake Total 557 ml Balance 557 ml Intake IV Total 557 ml # Voids 4 2 # Bowel Movements 0 Result Diagram: 02/24/17 0715 02/24/17 0715 Other Results Laboratory Tests Test 02/24/17 02/24/17 02/25/17 07:15 07:45 08:26 White Blood Count 8.4 TH/MM3 Red Blood Count 4.54 MIL/MM3 Hemoglobin 13.9 GM/DL Hematocrit 41.5 % Mean Corpuscular Volume 91.3 FL Mean Corpuscular Hemoglobin 30.6 PG Mean Corpuscular Hemoglobin 33.5 % Concent Red Cell Distribution Width 12.3 % Platelet Count 217 TH/MM3 Mean Platelet Volume 10.5 FL Neutrophils (%) (Auto) 60.9 % Lymphocytes (%) (Auto) 25.5 % Monocytes (%) (Auto) 9.5 % Eosinophils (%) (Auto) 3.2 % Basophils (%) (Auto) 0.9 % Neutrophils # (Auto) 5.1 TH/MM3 Lymphocytes # (Auto) 2.2 TH/MM3 Monocytes # (Auto) 0.8 TH/MM3 Eosinophils # (Auto) 0.3 TH/MM3 Basophils # (Auto) 0.1 TH/MM3 CBC Comment DIFF FINAL Differential Comment Prothrombin Time 10.3 SEC Prothromb Time International 0.9 RATIO Ratio Activated Partial 26.1 SEC Thromboplast Time Sodium Level 143 MEQ/L Potassium Level 3.9 MEQ/L Chloride Level 108 MEQ/L Carbon Dioxide Level 28.1 MEQ/L Anion Gap 7 MEQ/L Blood Urea Nitrogen 16 MG/DL Creatinine 0.82 MG/DL Estimat Glomerular Filtration 69 ML/MIN Rate Random Glucose 103 MG/DL Hemoglobin A1c 5.6 % Calcium Level 8.9 MG/DL Total Bilirubin 0.4 MG/DL 0.7 MG/DL Aspartate Amino Transf 48 U/L 32 U/L (AST/SGOT) Alanine Aminotransferase 87 U/L 72 U/L (ALT/SGPT) Alkaline Phosphatase 106 U/L 87 U/L Total Protein 7.7 GM/DL 6.5 GM/DL Albumin 3.9 GM/DL 3.3 GM/DL Free Thyroxine 0.90 NG/DL Thyroid Stimulating Hormone 1.190 uIU/ML 3rd Gen Urine Color LIGHT-YELLOW Urine Turbidity CLEAR Urine pH 6.0 Urine Specific [place] 1.003 Urine Protein NEG mg/dL Urine Glucose (UA) NEG mg/dL Urine Ketones NEG mg/dL Urine Occult Blood NEG Urine Nitrite NEG Urine Bilirubin NEG Urine Urobilinogen LESS THAN 2.0 MG/DL Urine Leukocyte Esterase NEG Urine WBC LESS THAN 1 /hpf Urine Squamous Epithelial 1 /hpf Cells Urine Bacteria RARE /hpf Microscopic Urinalysis Comment CULT NOT INDICATED Direct Bilirubin 0.2 MG/DL Indirect Bilirubin 0.5 MG/DL Triglycerides Level 136 MG/DL Cholesterol Level 126 MG/DL LDL Cholesterol 53 MG/DL HDL Cholesterol 45.6 MG/DL Cholesterol/HDL Ratio 2.76 RATIO Imaging Last Impressions Head Magnetic Resonance Angiography 02/24/17921 Signed Impressions: Service Date/Time: Friday, February 24, 2017 13:10 - CONCLUSION: 1. Diminutive basilar artery. The left vertebral is not identified. The right vertebral is quite small in size with segmental occlusion prior to its junction with the basilar. 2. The posterior circulation feeds via the P-comm. The remainder of the exam is within normal limits. Vlad Muir MD Brain MRI 02/24/17921 Signed Impressions: Service Date/Time: Friday, February 24, 2017 13:10 - CONCLUSION: 1. Negative examination. Stable compared to prior dated 08/20/16. Vlad Muir MD Head CT 02/24/17 0742 Signed Impressions: Service Date/Time: Friday, February 24, 2017 08:19 - CONCLUSION: Normal examination. Jose Desai Jr., MD Chest X-Ray 02/24/17 0742 Signed Impressions: Service Date/Time: Friday, February 24, 2017 07:52 - CONCLUSION: Normal examination. Jose Desai Jr., MD Carotid Artery Ultrasound 02/24/17 0000 Signed Impressions: Service Date/Time: Wednesday, February 24, 2017 10:11 - CONCLUSION: 1. Calcific plaque in the carotid bulb with no significant stenosis. 2. Multiple thyroid lesions. Prince Rojas MD Objective Remarks General: NAD, AAOx3 Chest: CTA Cardiac: A/P Problem List: (1) Paresthesia of left arm and leg Status: Acute Plan: - Pt is a 71 y/o female with hx of previous right thalamic stroke in 08/2016. She is on ASA 325mg po daily. - Pt presented to the ED with numbness sensation of the left side of her face, left UE and left LE in certain areas - Head CT (02/24) --> Negative: - MRI Brain (02/24) --> Negative examination. Stable compared to prior dated 03/28. - MRA head (02/24) --> Diminutive basilar artery. The left vertebral is not identified. The right vertebral is quite small in size with segmental occlusion prior to its junction with the basilar. The posterior circulation feeds via the P-comm. The remainder of the exam is within normal limits. - Carotid US (02/24) --> Calcific plaque in the carotid bulb with no significant stenosis. Multiple thyroid lesions. - Check TSH/Free T4, findings in the thyroid will need to be followed up on my her PCP. - Neurology was consulted from the ED. - 2D echo ordered - Telemetry - ASA - Statin - Pt may benefit from addition of Plavix but will discuss with Neurology - PT - Neuro checks - Supportive care - DVT prophylaxis with SCDs (2) History of CVA (cerebrovascular accident) Status: Chronic Plan: - See above. (3) Hyperlipidemia Status: Chronic Plan: - Cont. home meds Assessment and Plan Patient examined. Assessment and plan formulated with Jessi Fraire PA-C. I agree with the above. Jessi Fraire Feb 25, 2017 14:53 Jeison Santillan DO Mar 01, 2017 00:54
--- NOTE | 2017-02-25 15:07 | PD.CONS ---
Assessment and Plan Assessment Consult received per stroke order set. EMR reviewed. MRI negative for acute stroke. Neurology consult reviewed and indicates TIA. Consult deferred due to no acute stroke. Please reconsult as appropriate. Thank you. Sabrina Schulz MD Feb 25, 2017 15:06
--- NOTE | 2017-02-25 15:20 | HHI.PR ---
Review/Management Diagnosis Sensory TIA Plan continue plavix 75 mg daily and stop asa ok from neuro standpoint to discharge today and follow up with me in 2-3 weeks Diagnosis/Plan: Subjective Subjective Comments No acute events reported left sided numbness resolved and no new c/o Active Medications Current Medications Medications (Trade) Dose Ordered Sig/Stacie Route Start Time Stop Time Status Last Admin (NS 1000 ml Inj) 1,000 ml @ 70 mls/hr [id number] IV 02/24/17 09:37 02/24/17 20:27 (Vasotec Inj) 1.25 mg Q4H PRN IV 02/24/17 09:45 (Trandate Inj) 10 mg Q2H PRN IV 02/24/17 09:45 (Aspirin) 325 mg DAILY PO 02/24/17 09:45 02/25/17 08:48 (Pravachol) 40 mg HS PO 02/24/17 21:00 02/24/17 20:27 (Protonix) 20 mg DAILY PO 02/25/17 09:00 02/25/17 08:48 (NS Flush) 2 ml BID IV FLUSH 02/24/17 21:00 (NS Flush) 2 ml UNSCH PRN IV FLUSH 02/24/17 20:30 (Plavix) 75 mg DAILY PO 02/24/17 20:30 02/25/17 08:48 (NovoLOG SUPPLEMENTAL SCALE) 1 ACHS SQ 02/24/17 21:00 (D50w (Vial) Inj) 50 ml UNSCH PRN IV PUSH 02/24/17 20:30 (Glucagon Inj) 1 mg UNSCH PRN OTHER 02/24/17 20:30 Allergies Allergies Coded Allergies Fish Containing Products (Verified Allergy, Intermediate, THROAT BURNING- HIVES, 02/24/17) adhesive (Verified Allergy, Intermediate, Rash, 02/24/17) ascorbic acid (Verified Allergy, Intermediate, THROAT SORE- VAGINAL IRRITATION , 02/24/17) mineral oil (Verified Allergy, Intermediate, RASH- ITCHING, 02/24/17) povidone-iodine (Verified Allergy, Intermediate, SEVERE PEELING OF SKIN, ) Sulfa (Sulfonamide Antibiotics) (Verified Allergy, Unknown, 02/24/17) epinephrine (Verified Allergy, Unknown, 02/24/17) erythromycin base (Verified Allergy, Unknown, 02/24/17) Exam I&O / VS 02/24/17 02/24/17 02/25/17 14:59 22:59 06:59 Intake Total 557 ml Balance 557 ml Intake IV Total 557 ml # Voids 4 2 # Bowel Movements 0 Vital Signs Date Time Temp Pulse Resp B/P Pulse Ox O2 Delivery O2 Flow Rate FiO2 02/25/17 14:04 97 21 02/25/17 12:07 98.4 70 19 117/53 97 02/25/17 08:00 98.0 64 19 119/68 94 02/25/17 05:00 98.0 62 18 108/59 97 02/25/17 00:00 97.8 63 18 121/79 96 02/24/17 20:32 97.7 62 20 134/76 96 02/24/17 15:52 98.3 58 18 145/73 99 Exam Comments alert, speech normal CN intact MOTOR 5/5 BUE and BLE senory--normal Gait normal Objective Micro and Labs Laboratory Tests Test 02/25/17 08:26 Total Bilirubin 0.7 Direct Bilirubin 0.2 Indirect Bilirubin 0.5 Aspartate Amino Transf 32 (AST/SGOT) Alanine Aminotransferase 72 (ALT/SGPT) Alkaline Phosphatase 87 Total Protein 6.5 Albumin 3.3 Triglycerides Level 136 Cholesterol Level 126 LDL Cholesterol 53 HDL Cholesterol 45.6 Cholesterol/HDL Ratio 2.76 Diagnostic Tests carotid US normal Suresh Arguelles PhD MD Feb 25, 2017 15:20
--- NOTE | 2017-02-26 15:16 | HM ---
Date Performed: 02/24/2017 Time Performed: 19:53:00 HOOKUP DATE: 02/24/17 07:53:00 PM Wed ANALYSIS START TIME: 02/24/2017 7:58:00 PM ANALYSIS END TIME: 02/25/2017 8:02:00 PM PATIENT AGE: 71 PATIENT HEIGHT: 61 PATIENT WEIGHT: 132 DRUG LIST: room #[id number] / D/Cd home PATIENT DIAGNOSIS: NEURO SYMPTOMS TEST NARRATIVE: The patient's average heart rate was 69 BPM. Heart rates greater than 120 B PM were noted < 1% of the time. Heart rates less than 50 BPM were noted < 1% of the time. No ashutosh ses exceeding 2.0 seconds were noted. 3619 ventricular ectopics, which represented 4% of the tota l beat count, were noted. The highest ventricular ectopic frequency occurred from 07:00 PM to 08:00 PM Aretha. During this time 471 VE(s) occurred. Ventricular ectopics were observed as 3618 isolated be at(s) only. No couplets or runs were noted. Some of the ventricular beats occurred in bigeminal cyc les. 16 supraventricular ectopics, which represented < 1% of the total beat count, were noted. T he highest supraventricular ectopic frequency occurred from 11:00 AM to 12:00 PM Aretha. During this ti me 3 SVE(s) occurred. No episodes of ST depression (defined as -1.0 mm or more) were noted in lane nnel 1. No episodes of ST depression (defined as -1.0 mm or more) were noted in channel 2. No episo kyra of ST depression (defined as -1.0 mm or more) were noted in channel 3. TEST INTERPRETATION: Holter monitor demonstrates Sinus rhythm with a period of sinus bradycardia for 48 beats per minute and sinus tachycardia at 124 bpm. A rare PVC and PAC were noted. No repetitive arrhythmias were seen. No atrial fibrillation was appreciated. Signed by : Antwan Becerril
== END 2017-02-25 15:58 | disposition home or self-care (01) ==
LOC: NEPC 07:29 → INTOOBSV 09:50 → NEDA 09:50 → N05B 15:31
PROVIDERS: ADMIT Hospitalist; ATTEND Hospitalist
DX: R20.2 Paresthesia of skin (principal); E78.5 Hyperlipidemia, unspecified; K21.9 Gastro-esophageal reflux disease without esophagitis; Z86.73 Personal history of transient ischemic attack (TIA), and cerebral infarction without residual deficits; I49.9 Cardiac arrhythmia, unspecified; Z79.82 Long term (current) use of aspirin; Z79.899 Other long term (current) drug therapy; G45.8 Other transient cerebral ischemic attacks and related syndromes
CPT/HCPCS: 70450; 70544; 70551; 71010; 80053; 80061; 80076; 81001; 82948; 83036; 84439; 84443; 85025; 85610; 85730; 93005; 93225; 93226; 93306; 93880; 97161; 99285; G8987; G8988; J7030; G0378

== ENCOUNTER 2017-11-11 19:20 | Emergency (ER) | payer MEDICARE, OTHER ==
[~2017-11-11 19:20] MED LIST changes: -BONETAB PO; -LIPI20TA PO; +LIPI40TA PO; +PLAV75TA29 PO
[2017-11-11 19:29] VITALS: BP 172/77; PULSE 82; RESP 15; TEMP 97.5; TEMP 98.1; O2SAT 99
[2017-11-11 19:46] VITALS: BP 163/81; PULSE 79; RESP 16; O2SAT 98
--- NOTE | 2017-11-11 21:48 | RADRPT ---
EXAM DATE/TIME: 11/11/2017 21:13 [facility] COMPARISON: No previous studies available for comparison. INDICATIONS : Left inner ear bleeding. RADIATION DOSE: 52.80 CTDIvol (mGy) MEDICAL HISTORY : None SURGICAL HISTORY : None. ENCOUNTER: Initial ACUITY: 1 day PAIN SCORE: 8/10 LOCATION: Left ear TECHNIQUE: Volumetric scanning of the temporal bone was performed. Using automated exposure control and adjustm ent of the mA and/or kV according to patient size, radiation dose was kept as low as reasonably achie vable to obtain optimal diagnostic quality images. DICOM format image data is available electronicall y for review and comparison. FINDINGS: There is some trace fluid or cerumen in the left external auditory canal and near the tympanic membra ne. No bony abnormalities. There is no opacification of the middle ear and ossicles appear intact. Ma stoids are clear. There is mucosal thickening in the paranasal sinuses at the sphenoid and ethmoid ai r cells. CONCLUSION: 1. Trace fluid or cerumen in the left external auditory canal and adjacent to the tympanic membrane. No acute bony abnormalities. Middle ear and mastoids are clear. Mucosal thickening in the ethmoids an d sphenoid. Arthur Miller MD on November 11, 2017 at 21:43 Board Certified Radiologist. This report was verified electronically.
[2017-11-11 23:06] LABS: AUTOMATED NEUTROPHIL # 5.7 TH/MM3 (1.8-7.7); BASOPHIL # 0.1 TH/MM3 (0-0.2); EOSINOPHIL # 0.3 TH/MM3 (0-0.4); EOSINOPHIL % 2.9 % (0.0-4.0); HEMATOCRIT 40.8 % (35.0-46.0); HEMOGLOBIN 13.7 GM/DL (11.6-15.3); LYMPH % 23.6 % (9.0-44.0); LYMPHOCYTE # 2.1 TH/MM3 (1.0-4.8); MEAN CORPUSCULAR HEMOGLOBIN 30.2 PG (27.0-34.0); MEAN CORPUSCULAR HGB CONC 33.6 % (32.0-36.0); MEAN PLATELET VOLUME 9.9 FL (7.0-11.0); MONOCYTE # 0.7 TH/MM3 (0-0.9); NEUT % 64.5 % (16.0-70.0); PLATELET COUNT 234 TH/MM3 (150-450); RED BLOOD COUNT 4.53 MIL/MM3 (4.00-5.30); RED CELL DISTRIBUTION WIDTH 12.4 % (11.6-17.2); WHITE BLOOD COUNT 8.8 TH/MM3 (4.0-11.0)
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
[2017-11-11 23:19] LABS: ALBUMIN 3.9 GM/DL (3.4-5.0); ALT (GPT) 37 U/L (10-53); AST (GOT) 24 U/L (15-37); BICARBONATE 28.1 MEQ/L (21.0-32.0); BLOOD UREA NITROGEN 14 MG/DL (7-18); CALCIUM 8.9 MG/DL (8.5-10.1); CHLORIDE 107 MEQ/L (98-107); GLOMERULAR FILTRATION RATE 71 ML/MIN (>89); GLUCOSE,RANDOM 99 MG/DL (74-106); SODIUM (NA) 144 MEQ/L (136-145)
[2017-11-11 23:20] LABS: PROTHROMBIN TIME - PATIENT 10.3 SEC (9.8-11.6)
[2017-11-11 23:21] LABS: ALKALINE PHOSPHATASE 76 U/L (45-117); TOTAL BILIRUBIN ADULT 0.5 MG/DL (0.2-1.0); TOTAL PROTEIN 7.1 GM/DL (6.4-8.2)
[2017-11-11 23:52] VITALS: BP 165/80
== END 2017-11-11 23:55 | disposition home or self-care (01) ==
LOC: NEPE 19:20
DX: H92.22 Otorrhagia, left ear (principal); E78.00 Pure hypercholesterolemia, unspecified; K21.9 Gastro-esophageal reflux disease without esophagitis; Z79.899 Other long term (current) drug therapy
CPT/HCPCS: 70480; 80053; 85025; 85610; 99284